=== PATIENT | female | born 1980 | race African-American/Black ===

== ENCOUNTER 2023-08-14 19:26 | Emergency (ER) | payer SELFPAY ==
[~2023-08-14] VITALS: Ht 172.7 cm; Wt 54.1 kg
[2023-08-14 19:31] VITALS: O2SAT 100
[2023-08-14 19:38] VITALS: BP 120/70; PULSE 86; RESP 20; TEMP 99.4
[2023-08-14] MEDS ORDERED: TETANUS, DIPHTHERIA, PERTUSSIS VAC/PF 0.5ML (>10YR OLD) IM ONE (20:00)
[2023-08-14] MEDS ORDERED: AMOX1TAB16 MT (20:58)
== END 2023-08-15 00:54 | disposition home or self-care (01) ==
LOC: ER 19:26
DX: S00.83XA Contusion of other part of head, initial encounter (principal); Y08.89XA Assault by other specified means, initial encounter; Y93.89 Activity, other specified; Y92.89 Other specified places as the place of occurrence of the external cause; Y99.8 Other external cause status
CPT/HCPCS: 73130; 99283